=== PATIENT | male | born 1935 | race Caucasian/White ===

== ENCOUNTER 2022-04-01 13:18 | Observation (INO) ==
[2022-04-01] MEDS ORDERED: ASPIRIN CHEW 324 MG PO STA (13:39)
--- NOTE | 2022-04-01 14:21 | XRay Report ---
SINGLE VIEW CHEST CLINICAL HISTORY: Atypical chest pain. FINDINGS: An AP, portable, upright chest radiograph is obtained. No prior studies are available for c omparison at the time of dictation. The heart is enlarged. The pulmonary vasculature is noncongested. Bibasilar opacities are noted. No large pleural effusion or pneumothorax is seen. The skeletal struc tures are osteopenic. The bony thorax is grossly intact. IMPRESSION: 1. Cardiomegaly without radiographic evidence of congestive failure. 2. Bibasilar opacities likely represent atelectasis. Clinical correlation will be required. ACT 112: Negative or not required by law. Electronically signed by: Anup Alicia M.D. 04/01/2022 2:20 PM
[2022-04-01 14:31] LABS: Basophils # (auto) 0.04 K/uL (0-0.2); Basophils % (auto) 0.7 %; Eosinophils # (auto) 0.05 K/uL (0-0.50); Eosinophils % (auto) 0.8 %; Hematocrit (blood only) 30.2 % (40.1-51.0); Hemoglobin 10.1 g/dl (14.0-18.0); Immature Granulocytes # (auto) 0.03 K/uL (0.00-0.02); Immature Granulocytes % (auto) 0.5 %; Lymphocytes # (auto) 0.95 K/uL (1.2-3.4); Mean Corpuscular Hemoglobin 30.1 pg (25.0-34.0); Mean Corpuscular Hgb Conc 33.4 g/dL (32.0-36.0); Mean Corpuscular Volume 89.9 fL (80.0-100.0); Mean Platelet Volume 10.3 fL (9.4-12.4); Monocytes # (auto) 0.47 K/uL (0.24-0.82); Monocytes % (auto) 7.9 %; Neutrophils # (auto) 4.39 K/uL (1.4-6.5); Neutrophils % (auto) 74.1 %; Platelet Count 210 K/uL (130-400); RDW Standard Deviation 45.7 fL (36.4-46.3); Red Blood Count 3.36 M/uL (4.63-6.08); White Blood Count 5.93 K/ul (4.8-10.8)
[2022-04-01 14:35] LABS: Partial Thromboplastin Ratio 0.9; Partial Thromboplastin Time 24.1 Seconds (21.0-31.0); Prothrombin Time 10.9 Seconds (9.0-12.0)
[2022-04-01 14:54] LABS: Calcium 8.6 mg/dl (8.5-10.1); Est GFR (African American) 83.8 ml/min; Est GFR (Non-African American) 72.3 ml/min; Troponin I High Sensitivity 18.8 pg/ml (0-20)
--- NOTE | 2022-04-01 15:22 | Electrocardiogram Report ---
Test Reason : Blood Pressure : / mmHG Vent. Rate : 065 BPM Atrial Rate : 065 BPM P-R Int : 132 ms QRS Dur : 152 ms QT Int : 418 ms P-R-T Axes : 000 -49 -28 degrees QTc Int : 434 ms Poor data quality, interpretation may be adversely affected Sinus rhythm with occasional Premature ventricular complexes Left axis deviation Non-specific intra-ventricular conduction block Possible old posterior NE Abnormal ECG No previous ECGs available Confirmed by Lopez Fox ([id number]) on 04/01/2022 3:22:30 PM Referred By: SELF Confirmed By:Kevon Fox
--- NOTE | 2022-04-01 16:33 | History & Physical Report ---
Date of Service April 01, 2022 Assessment & Plan (1) Atypical chest pain: (2) Anemia: Plan This is an 86-year-old [place] male who has past medical history of myocardial infarction treated medically in [place] approximately 3 years ago and SVT who presents to ED with chest pain x3 days. Atypical Chest Pain hx of IL in past - treated medically in [place] ~ 3 years ago with IV heparin, no cath done Hx of SVT CP off/on x 3 days with exertion, relieved with rest/NTG x 1 initial trop, ecg okay admit to PCU cycle trops, repeat ekg in a.m. Lexiscan stress test in a.m. npo after midnight consult cardiology - pt has yet to establish care with billet inspector in area on ASA, nevbiolol as outpt which is prescribed by daughter. He only takes 1/4 of 5mg of nebivolol ( 1.25mg) a1c, lipid panel in a.m. DVT ppx: SQ Heparin Dispo: PCU, stress test in a.m.; further dispo pending stress test PCP: None, needs to establish FULL CODE Pt was seen and examined in collaboration with Dr. Mace, please see addendum Pt daughter, who is a Physician, name is Shama. Requests updates [phone]. History of Present Illness Chief Complaint: Chest pain x 3 days. Primary Care Provider: TIM PCP This is an 86-year-old [place] male who has past medical history of myocardial infarction treated medically in [place] approximately 3 years ago and SVT who presents to ED with chest pain x3 days. His daughter who is a physician is at bedside. She is the school teacher for the patient as she refuses translation services. Patient lives at home with his and ambulates with a cane. Previously had been in [place]. He is not established with any medical care [place] the [place]. Daughter prescribes him nebivolol and he takes a daily baby aspirin. She states approximately 3 years ago he was hospitalized in [place] and was diagnosed with a heart attack and treated with IV heparin. She states in [place] they do not do cardiac catheterizations. He has not had any heart stents or bypass procedures. She states he otherwise has no medical problems and takes no other medications. He also has not had any surgeries. Over the last 3 days he has been having intermittent chest pain that occurs with exertion. Symptoms are relieved with rest or taking 1 sublingual nitro. When the chest pain comes on he is typically in so exerting himself although he is unable to tell me what activity he is doing. When this comes on he gets sweaty and lightheaded. Chest pain is substernal and nonradiating. It is described as occasionally a pressure and occasionally an ache. He has not had similar pain in the past. He has not tried anything else to help relieve symptoms. Again he has not established with a billet inspector here. He is otherwise been in good state of health and denies any recent illness. Denies fever, chills, sweats, syncope, shortness of breath, palpitations, nausea, vomiting, abdominal pain, change in bowel or urinary habits. His appetite is otherwise been good. Allergies Allergy/AdvReac Type Severity Reaction Status Date / Time No Known Allergies Allergy Unverified 04/01/22 16:20 Home Medications Medication Instructions Recorded Confirmed Type aspirin 81 mg tablet,delayed 81 mg PO DAILY 04/01/22 04/01/22 History release nebivolol 5 mg tablet 1.25 mg PO DAILY 04/01/22 04/01/22 History Past Med/Surg History Medical History (Updated 04/01/22 @ 16:37 by Charlotte Mahoney PA-C) Old myocardial infarction SVT (supraventricular tachycardia) Surgical History (Updated 04/01/22 @ 16:28 by Charlotte Mahoney PA-C) No pertinent past surgical history Family History (Updated 04/01/22 @ 16:28 by Charlotte Mahoney PA-C) Other Family history non-contributory Social History (Updated 04/01/22 @ 16:29 by Charlotte Mahoney PA-C) Smoking Status: Never smoker Hx Alcohol Use: No Hx Substance Use: No Preferred Language: [place] marital status: Current Living Situation: Spouse Current Living Situation Comment: daughter lives close by who is a physician Feels Safe at Home: Yes Review of Systems Review of Systems: All systems reviewed & are unremarkable except as noted in HPI & below Physical Exam Physical Exam: Constitutional: WD/WN, vitals as above, NAD, sitting up in bed, pleasant, conversing easily Head: Normocephalic, Atraumatic Eyes: PERRL, conjunctivae normal, anicteric sclerae ENMT: external ear and nose normal, oropharynx normal Neck: trachea midline, no thyromegaly normal visual inspection Respiratory: normal respiratory effort, lungs clear to auscultation, no wheeze, rales, rhonchi. Normal insp/exp effort, no accessory muscle use Cardiovascular: RRR, 2/6 Cata best heard cardiac apex, b/l chronic venous stasis changes, no edema Vessels: no JVD or carotid bruit Chest: normal inspection of chest Abdomen: normal bowel sounds, soft, nontender, no hepatosplenomegaly Musculoskeletal: no cyanosis or clubbing, AROM x 4 Skin: no rashes, warm and dry normal turgor Neurologic: PERRL, EOMI, accommodation nl, no face palsy, no dysarthria CN's II-XI intact bilaterally and moves all extremities Psychiatric: A+Ox3, euthymic affect : deferred Results & Data Results & Data ([facility]) Vital Signs (Past 12 Hours) Vital Signs Temp Pulse Pulse Resp BP BP Pulse Ox 04/01/22 15:19 65 18 125/75 100 04/01/22 13:39 16 98 04/01/22 13:19 18 04/01/22 13:19 04/01/22 13:19 36.6 C 63 16 128/74 98 O2 Del Method 04/01/22 15:19 Room Air 04/01/22 13:39 Room Air 04/01/22 13:19 04/01/22 13:19 Room Air 04/01/22 13:19 Diagnostic Findings Chest X-Ray 04/01/22 13:39 SINGLE VIEW CHEST CLINICAL HISTORY: Atypical chest pain. FINDINGS: An AP, portable, upright chest radiograph is obtained. No prior studies are available for comparison at the time of dictation. The heart is enlarged. The pulmonary vasculature is noncongested. Bibasilar opacities are noted. No large pleural effusion or pneumothorax is seen. The skeletal structures are osteopenic. The bony thorax is grossly intact. IMPRESSION: 1. Cardiomegaly without radiographic evidence of congestive failure. 2. Bibasilar opacities likely represent atelectasis. Clinical correlation will be required. ACT 112: Negative or not required by law. Electronically signed by: Anup Alicia M.D. 04/01/2022 2:20 PM Medications Administered Medication List Discontinued Medications Aspirin (Aspirin Chew 324 Mg) 324 mg PO NOW STA Stop: 04/01/22 13:40 Last Admin: 04/01/22 14:08 Dose: 324 mg Documented By: LYDIA ECG Rate (beats per minute): 65 Rhythm: normal sinus Findings: + PVC COVID-19 Results Results COVID-19 Adm Lab Results: RBC 3.36 M/uL (4.63-6.08) L 04/01/22 WBC 5.93 K/ul (4.8-10.8) 04/01/22 Hgb 10.1 g/dl (14.0-18.0) L 04/01/22 Hct 30.2 % (40.1-51.0) L 04/01/22 Plt Count 210 K/uL (130-400) 04/01/22 Neutrophils (%) (Auto) 74.1 % 04/01/22 Lymphocytes (%) (Auto) 16.0 % 04/01/22 Monocytes # (Auto) 0.47 K/uL (0.24-0.82) 04/01/22 Eosinophils # (Auto) 0.05 K/uL (0-0.50) 04/01/22 Immature Granulocyte % (Auto) 0.5 % 04/01/22 Neutrophils # (Auto) 4.39 K/uL (1.4-6.5) 04/01/22 Lymphocytes # (Auto) 0.95 K/uL (1.2-3.4) L 04/01/22 Monocytes # (Auto) 0.47 K/uL (0.24-0.82) 04/01/22 Eosinophils # (Auto) 0.05 K/uL (0-0.50) 04/01/22 Basophils # (Auto) 0.04 K/uL (0-0.2) 04/01/22 Immature Granulocyte # (Auto) 0.03 K/uL (0.00-0.02) H 04/01 Na 136 mmol/L (136-145) 04/01/22 K 4.0 mmol/L (3.5-5.1) 04/01/22 Cl 106 mmol/L (98-107) 04/01/22 CO2 25 mmol/L (21-32) 04/01/22 Anion Gap 5 (3-11) 04/01/22 BUN 25 mg/dl (6-23) H 04/01/22 Creatinine 0.96 mg/dl (0.6-1.4) 04/01/22 BUN/Creatinine Ratio 26.0 (10-20) H 04/01/22 Glucose Level 105 mg/dl (70-99(Fasting)) H 04/01/22 Ca 8.6 mg/dl (8.5-10.1) 04/01/22 PTT 24.1 Seconds (21.0-31.0) 04/01/22 INR 1.0 (0.9-1.1) 04/01/22 SARS-CoV-2, RNA, NAAT NEGATIVE (NEGATIVE) 04/01/22 Chest X-Ray 04/01/22 Code Status & VTE Plan Code Status FULL CODE VTE Prophylaxis Plan VTE Prophylaxis will be ordered: Yes Supervising Physician Co-Signing Physician Notes Patient was seen and examined with Charlotte HERNANDEZ at bedside. Daughter Shama (physician) present at bedside. Chart reviewed. Case discussed with and agree with the documentation above. In summary, this is a 86 year old [place] speaking male with h/o IL (in [place] 3 yrs back treated medically, no cath done), SVT who doesn't see a physician presented to the ED with chest pain for 3 days, exertional, relieved with rest and NG. Last took nitro last night. In ED, vitals stable, chest pain free. Lying comfortably in bed, chest clear, heart sounds normal, abd benign, no edema. Trop x1 negative. EKG reviewed. Will place in obs for chest pain rule out with serial trop, tele, repeat EKG in am and stress test if trop, tele, EKG unremarkable. continue home aspirin and betablocker. No indication for heparin drip now. Consult cardio. Rest as per the note above.
--- NOTE | 2022-04-01 18:44 | Emergency Department Note ---
History of Present Illness General Chief Complaint: Chest Pain Stated Complaint: CHEST PAIN,HEADACHE,SOB,DIZZINESS,WEAKNESS Time Seen by Provider: 04/01/22 13:39 Source: patient and family (Daughter who is a physician is translating) History of Present Illness Provider Complaint: chest pain Onset (ago): day(s) 3 Duration: intermittent Onset: during exertion Pain Location: substernal Pain Radiation: none Severity: moderate Maximum Pain Intensity: 7 Current Pain Intensity: 0 Quality: + aching and + heaviness Relieved By: + nitroglycerin Exacerbated By: + nothing Context: no recent illness, no recent surgery, no recent immobilization, no recent travel, no trauma/injury, no new medications or no history of DVT/PE Associated symptoms: no nausea, no vomiting, no diaphoresis, no dyspnea, no syncope, no palpitations, no fever or no cough Treatments prior to arrival: nitroglycerin Home Medications Medication Instructions Recorded Confirmed Type aspirin 81 mg tablet,delayed 81 mg PO DAILY 04/01/22 04/01/22 History release nebivolol 5 mg tablet 1.25 mg PO DAILY 04/01/22 04/01/22 History Allergies Allergy/AdvReac Type Severity Reaction Status Date / Time No Known Allergies Allergy Unverified 04/01/22 16:20 Past Med/Surg History Medical History Old myocardial infarction SVT (supraventricular tachycardia) Surgical History No pertinent past surgical history Family History Other Family history non-contributory Social History Smoking Status: Never smoker Hx Alcohol Use: No Hx Substance Use: No Preferred Language: Gibralt[place] marital status: Current Living Situation: Spouse Current Living Situation Comment: daughter lives close by who is a physician Feels Safe at Home: Yes Review of Systems A total of 10 systems reviewed and were otherwise negative Physical Exam Vital Signs Vital Signs - 24 hr 04/01/22 13:19 04/01/22 13:19 04/01/22 13:19 Temperature 36.6 C Temperature Source Temporal Artery Scan Pulse Rate 63 Pulse Rate [Apical] Pulse Rate from SpO2 Sensor Pulse Rhythm [Apical] Pulse Strength [Apical] Respiratory Rate 16 18 Respiratory Effort / Characteristics Non-Labored Respiratory Depth Normal Respiratory Pattern Regular Blood Pressure 128/74 Blood Pressure [Left Arm] Blood Pressure Mean 92 Blood Pressure Mean [Left Arm] Blood Pressure Position [Left Arm] Pulse Oximetry 98 Oxygen Delivery Method Room Air Sepsis Recent Fever Within 48 Hours No Sepsis New/Unexplained Change in Mental Status No Sepsis Action Taken by Nursing No Action Required 04/01/22 13:39 04/01/22 15:19 04/01/22 15:30 Temperature Temperature Source Pulse Rate 60 Pulse Rate [Apical] 65 Pulse Rate from SpO2 Sensor 60 Pulse Rhythm [Apical] Regular Pulse Strength [Apical] Normal Respiratory Rate 16 18 14 Respiratory Effort / Characteristics Non-Labored Respiratory Depth Normal Respiratory Pattern Regular Blood Pressure 135/85 Blood Pressure [Left Arm] 125/75 Blood Pressure Mean 101 Blood Pressure Mean [Left Arm] 91 Blood Pressure Position [Left Arm] Lying Pulse Oximetry 98 100 98 Oxygen Delivery Method Room Air Room Air Room Air Sepsis Recent Fever Within 48 Hours Sepsis New/Unexplained Change in Mental Status Sepsis Action Taken by Nursing 04/01/22 15:50 04/01/22 16:34 04/01/22 17:00 Temperature Temperature Source Pulse Rate 63 70 Pulse Rate [Apical] 74 Pulse Rate from SpO2 Sensor 63 Pulse Rhythm [Apical] Regular Pulse Strength [Apical] Normal Respiratory Rate 14 16 18 Respiratory Effort / Characteristics Non-Labored Respiratory Depth Normal Respiratory Pattern Regular Blood Pressure 151/93 H 164/80 H Blood Pressure [Left Arm] 119/69 Blood Pressure Mean 112 108 Blood Pressure Mean [Left Arm] 85 Blood Pressure Position [Left Arm] Lying Pulse Oximetry 100 100 99 Oxygen Delivery Method Room Air Room Air Room Air Sepsis Recent Fever Within 48 Hours Sepsis New/Unexplained Change in Mental Status Sepsis Action Taken by Nursing Physical Exam GENERAL: He is oriented to person, place, and time. He appears well-developed and well-nourished. He does not appear distressed. HENT: Exam performed. - Head: Normocephalic and atraumatic. - Right Ear: External ear normal. No mastoid tenderness. - Left Ear: External ear normal. No mastoid tenderness. - Mouth/Throat: The oropharynx is clear and moist. No trismus in the jaw. No dental abscesses or uvula swelling. No oropharyngeal exudate or tonsillar abscesses. EYES: Conjunctivae and EOM are normal. Pupils are equal, round, and reactive to light. Right eye exhibits no discharge. Left eye exhibits no discharge. No scleral icterus. NECK: Normal range of motion. Neck supple. No JVD present. No spinous process tenderness present. No carotid bruit present. No rigidity. No tracheal deviation and normal range of motion present. No Brudzinski's sign and no Kernig's sign noted. CV: Normal rate, regular rhythm, normal heart sounds and intact distal pulses. There is no peripheral edema. Palpable radial pulses bue. PULM/CHEST: Effort normal and breath sounds normal. No respiratory distress. No stridor. He has no wheezes. He has no rales. - Chest Wall: He exhibits no tenderness. ABD: The abdomen is soft. Bowel sounds are normal. He has no distension. No mass is present. There is no tenderness. There is no rebound, no guarding, no Luna's sign and no tenderness at McBurney's point. Rovsig negative. MUSC/SKEL: Normal range of motion. There is no peripheral edema, tenderness or deformity. LYMPH: No cervical adenopathy. NEURO: He is alert and oriented to person, place, and time. He has normal strength. No cranial nerve deficit or sensory deficit. Coordination and gait normal. GCS eye subscore is 4. GCS verbal subscore is 5. GCS motor subscore is 6. Cerebellar tests wnl. SKIN: Skin is warm and dry. He is not diaphoretic. PSYCH: He has a normal mood and affect. Behavior is normal. Judgment and thought content normal. Course Course 1339: The patient was evaluated in room C5. A complete history and physical exam was performed Cardiac monitoring: An order was placed for continuous cardiac monitoring. The monitor shows a rate of 70 with sinus rhythm 1525: Vital signs stable. Labs and imaging are within normal limits. Daughter reports that the patient has never seen a oxygen equipment aide before but in [place] was told he had a heart attack and was being managed medically. Patient not seen a oxygen equipment aide in this country. Given the patient's recurrence of chest pain and repeated need for nitroglycerin the patient would be admitted to the [facility] team for rule out ACS. Administered Medications Discontinued Medications Aspirin (Aspirin Chew 324 Mg) 324 mg PO NOW STA Stop: 04/01/22 13:40 Last Admin: 04/01/22 14:08 Dose: 324 mg Documented By: LYDIA Medical Decision Making Laboratory Data Result diagrams: 04/01/22 14:10 04/01/22 14:10 Labs: Lab Results 04/01/22 04/01/22 04/01/22 Range/Units 14:10 14:10 14:10 WBC 5.93 (4.8-10.8) K/ul RBC 3.36 L (4.63-6.08) M/uL Hgb 10.1 L (14.0-18.0) g/dl Hct 30.2 L (40.1-51.0) % MCV 89.9 (80.0-100.0) fL MCH 30.1 (25.0-34.0) pg MCHC 33.4 (32.0-36.0) g/dL RDW Std Deviation 45.7 (36.4-46.3) fL RDW Coeff of Rg 14.0 (11.5-14.5) % Plt Count 210 (130-400) K/uL MPV 10.3 (9.4-12.4) fL Immature Gran % (Auto) 0.5 % Neut % (Auto) 74.1 % Lymph % (Auto) 16.0 % Wake % (Auto) 7.9 % Eos % (Auto) 0.8 % Baso % (Auto) 0.7 % Neut # (Auto) 4.39 (1.4-6.5) K/uL Lymph # (Auto) 0.95 L (1.2-3.4) K/uL Wake # (Auto) 0.47 (0.24-0.82) K/uL Eos # (Auto) 0.05 (0-0.50) K/uL Baso # (Auto) 0.04 (0-0.2) K/uL Immature Gran # (Auto) 0.03 H (0.00-0.02) K/uL PT 10.9 (9.0-12.0) Seconds INR 1.0 (0.9-1.1) APTT 24.1 (21.0-31.0) Seconds PTT Ratio 0.9 Sodium 136 (136-145) mmol/L Potassium 4.0 (3.5-5.1) mmol/L Chloride 106 (98-107) mmol/L Carbon Dioxide 25 (21-32) mmol/L Anion Gap 5 (3-11) BUN 25 H (6-23) mg/dl Creatinine 0.96 (0.6-1.4) mg/dl Est Cr Clr Drug Dosing 61.0 ml/min Est GFR ( Amer) 83.8 ml/min Est GFR (Non-Af Amer) 72.3 ml/min BUN/Creatinine Ratio 26.0 H (10-20) Glucose 105 H (70-99(Fasting)) mg/dl Calcium 8.6 (8.5-10.1) mg/dl Troponin I High Sens 18.8 (0-20) pg/ml Lipase 17 (11-82) U/L SARS-CoV-2, RNA, NAAT (NEGATIVE) 04/01/22 04/01/22 Range/Units 15:34 17:06 WBC (4.8-10.8) K/ul RBC (4.63-6.08) M/uL Hgb (14.0-18.0) g/dl Hct (40.1-51.0) % MCV (80.0-100.0) fL MCH (25.0-34.0) pg MCHC (32.0-36.0) g/dL RDW Std Deviation (36.4-46.3) fL RDW Coeff of Rg (11.5-14.5) % Plt Count (130-400) K/uL MPV (9.4-12.4) fL Immature Gran % (Auto) % Neut % (Auto) % Lymph % (Auto) % Wake % (Auto) % Eos % (Auto) % Baso % (Auto) % Neut # (Auto) (1.4-6.5) K/uL Lymph # (Auto) (1.2-3.4) K/uL Wake # (Auto) (0.24-0.82) K/uL Eos # (Auto) (0-0.50) K/uL Baso # (Auto) (0-0.2) K/uL Immature Gran # (Auto) (0.00-0.02) K/uL PT (9.0-12.0) Seconds INR (0.9-1.1) APTT (21.0-31.0) Seconds PTT Ratio Sodium (136-145) mmol/L Potassium (3.5-5.1) mmol/L Chloride (98-107) mmol/L Carbon Dioxide (21-32) mmol/L Anion Gap (3-11) BUN (6-23) mg/dl Creatinine (0.6-1.4) mg/dl Est Cr Clr Drug Dosing ml/min Est GFR ( Amer) ml/min Est GFR (Non-Af Amer) ml/min BUN/Creatinine Ratio (10-20) Glucose (70-99(Fasting)) mg/dl Calcium (8.5-10.1) mg/dl Troponin I High Sens 20.0 (0-20) pg/ml Lipase (11-82) U/L SARS-CoV-2, RNA, NAAT NEGATIVE (NEGATIVE) Imaging Data Chest x-ray: Radiologist's impression: Chest X-Ray 04/01/22 13:39 SINGLE VIEW CHEST CLINICAL HISTORY: Atypical chest pain. FINDINGS: An AP, portable, upright chest radiograph is obtained. No prior studies are available for comparison at the time of dictation. The heart is enlarged. The pulmonary vasculature is noncongested. Bibasilar opacities are noted. No large pleural effusion or pneumothorax is seen. The skeletal structures are osteopenic. The bony thorax is grossly intact. IMPRESSION: 1. Cardiomegaly without radiographic evidence of congestive failure. 2. Bibasilar opacities likely represent atelectasis. Clinical correlation will be required. ACT 112: Negative or not required by law. Electronically signed by: Anup Alicia M.D. 04/01/2022 2:20 PM ECG Data Indication: chest pain Rate (beats per minute): 65 Rhythm: normal sinus Findings: + PVC and + RBBB; no ST depression, no ST elevation or no prolonged QT MDM Narrative Vital signs stable. Labs and imaging are within normal limits. Daughter reports that the patient has never seen a oxygen equipment aide before but in [place] was told he had a heart attack and was being managed medically. Patient not seen a oxygen equipment aide in this country. Given the patient's recurrence of chest pain and repeated need for nitroglycerin the patient would be admitted to the [facility] team for rule out ACS. Impression & Plan Chest pain Discharge Plan Visit Data Chief Complaint: Chest Pain Stated Complaint: CHEST PAIN,HEADACHE,SOB,DIZZINESS,WEAKNESS ED Provider: Krishan Mcintyre Discharge Problem: Chest pain Patient Disposition: Being Evaluated by Hospitalist Forms Stand Alone Forms: [facility] Prescriptions Prescriptions: No Action aspirin [Aspir-81] 81 mg Tablet,Delayed Release (Dr/Ec) 81 mg PO DAILY nebivolol 5 mg Tablet 1.25 mg PO DAILY Referrals Referrals: PCP,NO [Primary Care Provider] -
[2022-04-01] MEDS ORDERED: ACETAMINOPHEN 325 MG TAB PO PRN (21:34)
[2022-04-01] MEDS ORDERED: ONDANSETRON INJ 2 MG/ML 2 ML VIAL IV PRN (21:34)
[2022-04-01] MEDS ORDERED: POLYETHYLENE (MIRALAX) 17 GM PACK PO PRN (21:34)
[2022-04-01] MEDS ORDERED: MAGNESIUM HYDROXIDE SUSP 30 ML UDC PO PRN (21:34)
[2022-04-01] MEDS ORDERED: ALUMINUM/MAGNESIUM SUSP 30 ML UDC PO PRN (21:34)
[2022-04-01] MEDS ORDERED: NITROGLYCERIN SL 0.4 MG/TAB TAB SL PRN (21:34)
[2022-04-01] MEDS: HEPARIN SOD 5,000 UNIT/0.5 ML VIAL SQ SCH (22:21)
[2022-04-02] MEDS: HEPARIN SOD 5,000 UNIT/0.5 ML VIAL SQ SCH ×2 (05:40→17:21)
[2022-04-02 06:10] LABS: Basophils # (auto) 0.03 K/uL (0-0.2); Basophils % (auto) 0.6 %; Eosinophils # (auto) 0.09 K/uL (0-0.50); Eosinophils % (auto) 1.8 %; Hematocrit (blood only) 31.4 % (40.1-51.0); Hemoglobin 10.4 g/dl (14.0-18.0); Immature Granulocytes # (auto) 0.02 K/uL (0.00-0.02); Immature Granulocytes % (auto) 0.4 %; Lymphocytes # (auto) 0.97 K/uL (1.2-3.4); Lymphocytes % (auto) 19.1 %; Mean Corpuscular Hemoglobin 30.1 pg (25.0-34.0); Mean Corpuscular Hgb Conc 33.1 g/dL (32.0-36.0); Mean Corpuscular Volume 90.8 fL (80.0-100.0); Mean Platelet Volume 10.1 fL (9.4-12.4); Monocytes # (auto) 0.43 K/uL (0.24-0.82); Monocytes % (auto) 8.5 %; Neutrophils # (auto) 3.54 K/uL (1.4-6.5); Neutrophils % (auto) 69.6 %; Platelet Count 184 K/uL (130-400); RDW Standard Deviation 46.1 fL (36.4-46.3); Red Blood Count 3.46 M/uL (4.63-6.08); White Blood Count 5.08 K/ul (4.8-10.8)
[2022-04-02 06:47] LABS: Troponin I High Sensitivity 16.3 pg/ml (0-20)
[2022-04-02 07:01] LABS: Ferritin 75.9 ng/ml (8-388)
[2022-04-02 07:05] LABS: Albumin Globulin Ratio 1.3 (0.9-2); Albumin Level 3.1 gm/dl (3.4-5.0); BUN Creatinine Ratio 22.3 (10-20); Bilirubin,Total 0.3 mg/dl (0.2-1.0); Calcium 8.1 mg/dl (8.5-10.1); Chol HDL Ratio 3.7 (0-5); Creatinine Clr Calc Pharmacy 62.3 ml/min; Est GFR (African American) 85.9 ml/min; Est GFR (Non-African American) 74.2 ml/min; Globulin 2.3 gm/dl (2.5-4.0); Magnesium 2.2 mg/dl (1.7-2.4); Potassium 4.1 mmol/L (3.5-5.1); Total Protein 5.4 gm/dl (6.0-8.3)
[2022-04-02 07:07] LABS: Estimated Average Glucose 111 mg/dl; Folate (Folic Acid) 14.15 ng/ml (>5.38); Hemoglobin A1C 5.5 % (4.5-5.6)
[2022-04-02] MEDS ORDERED: FERROUS SULFATE 325 MG/7.4 ML UDP PO SCH (09:00)
[2022-04-02] MEDS ORDERED: METOPROLOL TARTRATE 25 MG TAB PO SCH (09:00)
[2022-04-02] MEDS ORDERED: ATORVASTATIN 40 MG TAB PO SCH (09:00)
[2022-04-02] MEDS ORDERED: DOCUSATE SODIUM 100 MG CAP PO SCH (09:00)
[2022-04-02] MEDS ORDERED: ASPIRIN 81 MG ECTAB PO SCH (09:00)
--- NOTE | 2022-04-02 11:05 | Cardiology Consultation ---
Date of Consultation April 02, 2022 Assessment & Plan (1) Chest pain: (2) Old myocardial infarction: Plan Patient admitted after several days of CP. Now resolved. EKG demonstrates possible inferior T wave inversions, but no comparison available. HS troponin negative x4. Proceed with resting echo and nuclear Lexiscan stress test today for further evaluation. He apparently does have history of possible CAD, with old FL in [place] several years ago, managed medically. Recommend ASA 81 mg daily, statin, and low dose beta annie on discharge. Case discussed with Dr. Hernandez. Will follow. Further recommendations pending review of imaging studies. Supervising Physician Co-Signing Physician Notes 86-year-old patient present to the emergency department due to chest discomfort. Discomfort waxing and waning over several days at times associated with exertion. Discomfort has resolved since admission. ECG demonstrating T wave inversions without comparison. High-sensitivity troponins negative. Spoke with patient's daughter via telephone. She offers no additional concerns/complaints. Patient speaks limited Citizen Of [place]. PE: VSS. GEN: NAD, AAO x3. Heart: Regular rhythm, normal S1-S2. 2/6 midsystolic murmur heard best at left ventricular apex without radiation. Lungs: Clear bilateral, no rales, rhonchi, wheeze. Extremities: No edema. A/P: Agree with above PA-C history, physical exam, assessment and plan. 86-year-old patient admitted with chest discomfort. No evidence of acute coronary syndrome. Echocardiogram reveals mild to moderate mitral regurgitation without regional wall motion abnormality. We will proceed with Lexiscan nuclear stress testing for further risk stratification. Further recommendations pending results. History of Present Illness Reason for Consultation: Chest pain Requesting Physician: Dr. Domínguez Attending Physician: Dr. Hernandez History of Present Illness Patient is a 86 year old Cam[place] male who was brought to ER for 3 days of chest pain. History is obtained from admission records. Daughter, who is a physician provided translation in the ER, declining translation services. Patient has declined translation today. He is able to communicate with minimal Citizen [place] at time of consult. He apparently had an FL several years ago while in [place], but was treated medically. He takes nebivolol at home and ASA. He denies recurrent chest pain. No SOB. He is laying in bed comfortably. No palpitations. No orthopnea, PND or edema. Since admission HS troponin remains unremarkable. EKG demonstrates NSR with T wave inversion in inferior lead. No prior available for comparison with inpatient/outpatient records. He is scheduled for echo and nuclear lexiscan today. Allergies Allergy/AdvReac Type Severity Reaction Status Date / Time No Known Allergies Allergy Unverified 04/01/22 16:20 Home Medications Medication Instructions Recorded Confirmed Type aspirin 81 mg tablet,delayed 81 mg PO DAILY 04/01/22 04/01/22 History release nebivolol 5 mg tablet 1.25 mg PO DAILY 04/01/22 04/01/22 History Patient History Medical History Old myocardial infarction SVT (supraventricular tachycardia) Surgical History No pertinent past surgical history Family History Other Family history non-contributory Social History Smoking Status: Former smoker Second Hand Exposure: No; Do You Dip or Chew Tobacco: No; Tobacco Cessation Education Requested by Patient: No Hx Alcohol Use: Yes Alcohol type: wine Hx Substance Use: No Preferred Language: Cameroonian Communication Ability: Effective Communication Tools: IPad and Language Line Manufacturing Systems Engineer Manufacturing Systems Engineer Required: Yes, Video and Voice Beliefs That Will Affect Care: None marital status: Current Living Situation: Spouse Current Living Situation Comment: daughter lives close by who is a physician Other Information That Helps Us Care for You: No Feels Safe at Home: Yes Safety Concerns: Feels Safe At This Time Assistive Devices: Cane Review of Systems Review of Systems: All systems reviewed & are unremarkable except as noted in HPI & below Physical Exam Constitutional: WD/WN, vitals as above Respiratory: normal respiratory effort, lungs clear to auscultation Cardiovascular: Rate/Rhythm: regular rate and regular rhythm Heart Sounds: + murmur (II/ systolic murmur LSB) Gastrointestinal (Abdomen): normal bowel sounds, soft, nontender, no hepatosplenomegaly Skin: no rashes, warm and dry Neurologic: PERRL, EOMI, accommodation nl, no face palsy, no dysarthria Psychiatric: A+Ox3, euthymic affect Results & Data ([facility]) Vital Signs (Past 12 Hours) Vital Signs Temp Pulse Pulse Resp BP Pulse Ox O2 Del Method 04/02/22 10:57 36.5 C 57 L 17 138/70 100 Room Air 04/02/22 07:01 36.8 C 63 16 124/79 100 Room Air 04/01/22 23:00 85 04/01/22 23:15 36.6 C 57 L 16 113/72 100 Room Air Laboratory Results Cardiac Enzymes 04/01/22 04/01/22 04/01/22 Range/Units 14:10 17:06 22:46 AST (13-39) U/L Troponin I High Sens 18.8 20.0 19.9 (0-20) pg/ml 04/02/22 Range/Units 05:31 AST 14 (13-39) U/L Troponin I High Sens 16.3 (0-20) pg/ml Coagulation 04/01/22 Range/Units 14:10 PT 10.9 (9.0-12.0) Seconds APTT 24.1 (21.0-31.0) Seconds Lipids 04/02/22 Range/Units 05:31 Triglycerides 86 (0-150) mg/dl Cholesterol 158 (0-200) mg/dl HDL Cholesterol 43 mg/dl Cholesterol/HDL Ratio 3.7 (0-5) CBC 04/01/22 04/02/22 Range/Units 14:10 05:31 WBC 5.93 5.08 (4.8-10.8) K/ul RBC 3.36 L 3.46 L (4.63-6.08) M/uL Hgb 10.1 L 10.4 L (14.0-18.0) g/dl Hct 30.2 L 31.4 L (40.1-51.0) % Plt Count 210 184 (130-400) K/uL Neut # (Auto) 4.39 3.54 (1.4-6.5) K/uL Lymph # (Auto) 0.95 L 0.97 L (1.2-3.4) K/uL [place] # (Auto) 0.47 0.43 (0.24-0.82) K/uL Eos # (Auto) 0.05 0.09 (0-0.50) K/uL Baso # (Auto) 0.04 0.03 (0-0.2) K/uL Comprehensive Metabolic Panel 04/01/22 04/02/22 Range/Units 14:10 05:31 Sodium 136 140 (136-145) mmol/L Potassium 4.0 4.1 (3.5-5.1) mmol/L Chloride 106 109 H (98-107) mmol/L Carbon Dioxide 25 28 (21-32) mmol/L BUN 25 H 21 (6-23) mg/dl Creatinine 0.96 0.94 (0.6-1.4) mg/dl Glucose 105 H 92 (70-99(Fasting)) mg/dl Calcium 8.6 8.1 L (8.5-10.1) mg/dl AST 14 (13-39) U/L ALT 11 (7-52) U/L Alkaline Phosphatase 42 (34-104) U/L Total Protein 5.4 L (6.0-8.3) gm/dl Albumin 3.1 L (3.4-5.0) gm/dl Intake and Output 04/01/22 04/02/22 04/02/22 22:59 06:59 14:59 Intake Total 240 / 240 Output Total 350 / 350 Balance -110 / -110 Intake: Oral 240 / 240 Output: Urine 350 / 350 Other: Other Intake Source npo Weight 79.9 kg 79.9 kg Weight Measurement Method Standing Scale Patient Weight 04/03/22 06:59 Weight 79.9 kg Laboratory Results WBC 5.08 K/ul (4.8-10.8) 04/02/22 05:31 RBC 3.46 M/uL (4.63-6.08) L 04/02/22 05:31 Hgb 10.4 g/dl (14.0-18.0) L 04/02/22 05:31 Hct 31.4 % (40.1-51.0) L 04/02/22 05:31 MCV 90.8 fL (80.0-100.0) 04/02/22 05:31 MCH 30.1 pg (25.0-34.0) 04/02/22 05:31 MCHC 33.1 g/dL (32.0-36.0) 04/02/22 05:31 RDW Std Deviation 46.1 fL (36.4-46.3) 04/02/22 05:31 RDW Coeff of Rg 14.0 % (11.5-14.5) 04/02/22 05:31 Plt Count 184 K/uL (130-400) 04/02/22 05:31 MPV 10.1 fL (9.4-12.4) 04/02/22 05:31 Immature Gran % (Auto) 0.4 % 04/02/22 05:31 Neut % (Auto) 69.6 % 04/02/22 05:31 Lymph % (Auto) 19.1 % 04/02/22 05:31 [place] % (Auto) 8.5 % 04/02/22 05:31 Eos % (Auto) 1.8 % 04/02/22 05:31 Baso % (Auto) 0.6 % 04/02/22 05:31 Neut # (Auto) 3.54 K/uL (1.4-6.5) 04/02/22 05:31 Lymph # (Auto) 0.97 K/uL (1.2-3.4) L 04/02/22 05:31 [place] # (Auto) 0.43 K/uL (0.24-0.82) 04/02/22 05:31 Eos # (Auto) 0.09 K/uL (0-0.50) 04/02/22 05:31 Baso # (Auto) 0.03 K/uL (0-0.2) 04/02/22 05:31 Immature Gran # (Auto) 0.02 K/uL (0.00-0.02) 04/02/22 05:31 PT 10.9 Seconds (9.0-12.0) 04/01/22 14:10 INR 1.0 (0.9-1.1) 04/01/22 14:10 APTT 24.1 Seconds (21.0-31.0) 04/01/22 14:10 PTT Ratio 0.9 04/01/22 14:10 Sodium 140 mmol/L (136-145) 04/02/22 05:31 Potassium 4.1 mmol/L (3.5-5.1) 04/02/22 05:31 Chloride 109 mmol/L (98-107) H 04/02/22 05:31 Carbon Dioxide 28 mmol/L (21-32) 04/02/22 05:31 Anion Gap 3 (3-11) 04/02/22 05:31 BUN 21 mg/dl (6-23) 04/02/22 05:31 Creatinine 0.94 mg/dl (0.6-1.4) 04/02/22 05:31 Est Cr Clr Drug Dosing 62.3 ml/min 04/02/22 05:31 Est GFR ( Amer) 85.9 ml/min 04/02/22 05:31 Est GFR (Non-Af Amer) 74.2 ml/min 04/02/22 05:31 BUN/Creatinine Ratio 22.3 (10-20) H 04/02/22 05:31 Glucose 92 mg/dl (70-99(Fasting)) 04/02/22 05:31 Estimat Average Glucose 111 mg/dl 04/02/22 05:31 Hemoglobin A1c 5.5 % (4.5-5.6) 04/02/22 05:31 Calcium 8.1 mg/dl (8.5-10.1) L 04/02/22 05:31 Magnesium 2.2 mg/dl (1.7-2.4) 04/02/22 05:31 Iron 31 mcg/dl (35-175) L 04/02/22 05:31 Transferrin 188 mg/dl (200-360) L 04/02/22 05:31 Ferritin 75.9 ng/ml (8-388) 04/02/22 05:31 Total Bilirubin 0.3 mg/dl (0.2-1.0) 04/02/22 05:31 AST 14 U/L (13-39) 04/02/22 05:31 ALT 11 U/L (7-52) 04/02/22 05:31 Alkaline Phosphatase 42 U/L (34-104) 04/02/22 05:31 Troponin I High Sens 16.3 pg/ml (0-20) 04/02/22 05:31 Total Protein 5.4 gm/dl (6.0-8.3) L 04/02/22 05:31 Albumin 3.1 gm/dl (3.4-5.0) L 04/02/22 05:31 Globulin 2.3 gm/dl (2.5-4.0) L 04/02/22 05:31 Albumin/Globulin Ratio 1.3 (0.9-2) 04/02/22 05:31 Triglycerides 86 mg/dl (0-150) 04/02/22 05:31 Cholesterol 158 mg/dl (0-200) 04/02/22 05:31 LDL Cholesterol, Calc 98 mg/dl 04/02/22 05:31 VLDL Cholesterol, Calc 17 mg/dl (0-30) 04/02/22 05:31 HDL Cholesterol 43 mg/dl 04/02/22 05:31 Cholesterol/HDL Ratio 3.7 (0-5) 04/02/22 05:31 Lipase 17 U/L (11-82) 04/01/22 14:10 Vitamin B12 443 pg/ml (180-914) 04/02/22 05:31 Folate 14.15 ng/ml (>5.38) 04/02/22 05:31 SARS-CoV-2, RNA, NAAT NEGATIVE (NEGATIVE) 04/01/22 15:34 Impressions Chest X-Ray 04/01/22 13:39 SINGLE VIEW CHEST CLINICAL HISTORY: Atypical chest pain. FINDINGS: An AP, portable, upright chest radiograph is obtained. No prior studies are available for comparison at the time of dictation. The heart is enlarged. The pulmonary vasculature is noncongested. Bibasilar opacities are noted. No large pleural effusion or pneumothorax is seen. The skeletal structures are osteopenic. The bony thorax is grossly intact. IMPRESSION: 1. Cardiomegaly without radiographic evidence of congestive failure. 2. Bibasilar opacities likely represent atelectasis. Clinical correlation will be required. ACT 112: Negative or not required by law. Electronically signed by: Anup Alicia M.D. 04/01/2022 2:20 PM Diagnostic Findings Telemetry reviewed: NSR at 50-60 bpm EKGs reviewed: Sinus rhythm with occasional Premature ventricular complexes Left axis deviation Non-specific intra-ventricular conduction block Possible old posterior FL T wave inversion in inferior leads. No prior EKG's for comparison Medications Administered Current Inpatient Medications Acetaminophen (Acetaminophen 325 Mg Tab) 650 mg PO Q4H PRN PRN Reason: Pain or Fever Stop: 05/01/22 21:33 Al Hydrox/Mg Hydrox/Simethicone (Aluminum/Magnesium Susp 30 Ml Udc) 15 ml PO Q4H PRN PRN Reason: Dyspepsia Stop: 05/01/22 21:33 Aspirin (Aspirin 81 Mg Ectab) 81 mg PO DAILY [facility] Stop: 05/02/22 08:59 Last Admin: 04/02/22 08:54 Dose: 81 mg Atorvastatin Calcium (Atorvastatin 40 Mg Tab) 40 mg PO QAM [facility] Stop: 05/02/22 08:59 Last Admin: 04/02/22 10:16 Dose: 40 mg Docusate Sodium (Docusate Sodium 100 Mg Cap) 100 mg PO BID [facility] Stop: 05/02/22 08:59 Last Admin: 04/02/22 10:16 Dose: 100 mg Ferrous Sulfate (Ferrous Sulfate 325 Mg/7.4 Ml Udp) 325 mg PO QAM [facility] Stop: 05/02/22 08:59 Last Admin: 04/02/22 08:57 Dose: 325 mg Heparin Sodium (Porcine) (Heparin Sod 5,000 Unit/0.5 Ml Vial) 5,000 units SQ Q8 [facility] Stop: 05/01/22 21:59 Last Admin: 04/02/22 05:40 Dose: 5,000 units Magnesium Hydroxide (Magnesium Hydroxide Susp 30 Ml Udc) 30 ml PO Q12H PRN PRN Reason: Constipation Stop: 05/01/22 21:33 Metoprolol Tartrate (Metoprolol Tartrate 25 Mg Tab) 6.25 mg PO BID [facility]; Protocol Stop: 05/02/22 08:59 Nitroglycerin (Nitroglycerin Sl 0.4 Mg/Tab Tab) 0.4 mg SL UD PRN PRN Reason: Chest Pain Stop: 05/01/22 21:33 Ondansetron HCl (Ondansetron Inj 2 Mg/Ml 2 Ml Vial) 4 mg IV Q6H PRN PRN Reason: Nausea Stop: 05/01/22 21:33 Polyethylene Glycol (Polyethylene (Miralax) 17 Gm Pack) 17 gm PO DAILY PRN PRN Reason: Constipation Stop: 05/01/22 21:33 (1) Chest pain Chest pain type: unspecified Qualified Code(s): R07.9 - Chest pain, unspecified
[2022-04-02] MEDS ORDERED: REGADENOSON 0.4 MG/5 ML SYR IV ONE (12:52)
--- NOTE | 2022-04-02 15:26 | Myocardial Perfusion Study ---
Date of Service April 02, 2022 Myocardial Perfusion Study [facility] Myocardial Perfusion Study Report Patient performed a Lexiscan nuclear stress test according to standard protocol for 3 minutes and 32 seconds. Resting heart rate of 54 bpm which lele to a maximal heart rate of 101 bpm. Value represents 74% of the maximal, age- predicted heart rate. Resting blood pressure of 127/92 which elle to a maximal blood pressure of 127/92. Resting ECG: Normal sinus rhythm, nonspecific interventricular conduction block. Inferior T wave abnormality. Stress ECG: Sinus tachycardia. No significant ST changes. No evidence of Lexiscan induced ischemia. Nuclear imaging report: For the stress portion of the study, 31.3 mCi of technetium 99m Cardiolite IV was injected at 1330 p.m. on 04/02/2022. 30 minutes following the injection, imaging of the heart was performed in multiple projections. For the rest portion of the study 10.6 mCi of technetium 99m Cardiolite was injected IV at 11:55 AM. 1 hour following the injection, imaging of the heart was performed in the same projections. Raw data: There is significant hepatic and gallbladder uptake of isotopic tracer on rotating, raw data images. Right ventricle: Not well visualized Resting images: There is a small defect of mild intensity involving the base and mid inferior wall. The remaining left ventricular myocardial wall segments demonstrate normal perfusion. Defect likely secondary to soft tissue attenuation lesion artifact, ramp filter artifact, in the setting of hepatic isotopic tracer uptake. Stress images: There is a small defect of mild intensity involving left ventricular apex. The defect is reversible when compared to resting images and represent a small area of apical ischemia. The remaining left ventricular myocardial wall segments demonstrate normal perfusion. Gated SPECT imaging: Poor quality. Qualitative ejection fraction is 50%. Recommend alternative imaging for accurate assessment of left ventricular systolic function. Conclusion: Abnormal Lexiscan nuclear stress test suggesting a small area of apical ischemia.
--- NOTE | 2022-04-02 16:44 | Discharge Summary ---
Date of Service April 02, 2022 Admission HPI Per Admitting Provider This is an 86-year-old [place] male who has past medical history of myocardial infarction treated medically in [place] approximately 3 years ago and SVT who presents to ED with chest pain x3 days. His daughter who is a physician is at bedside. She is the cloth shader for the patient as she refuses translation services. Patient lives at home with his and ambulates with a cane. Previously had been in [place]. He is not established with any medical care [place]. Daughter prescribes him nebivolol and he takes a daily baby aspirin. She states approximately 3 years ago he was hospitalized in [place] and was diagnosed with a heart attack and treated with IV heparin. She states in [place] they do not do cardiac catheterizations. He has not had any heart stents or bypass procedures. She states he otherwise has no medical problems and takes no other medications. He also has not had any surgeries. Over the last 3 days he has been having intermittent chest pain that occurs with exertion. Symptoms are relieved with rest or taking 1 sublingual nitro. When the chest pain comes on he is typically in so exerting himself although he is unable to tell me what activity he is doing. When this comes on he gets sweaty and lightheaded. Chest pain is substernal and nonradiating. It is described as occasionally a pressure and occasionally an ache. He has not had similar pain in the past. He has not tried anything else to help relieve symptoms. Again he has not established with a deaf/hard of hearing specialist here. He is otherwise been in good state of health and denies any recent illness. Denies fever, chills, sweats, syncope, shortness of breath, palpitations, nausea, vomiting, abdominal pain, change in bowel or urinary habits. His appetite is otherwise been good. Principal Diagnosis Stable angina Discharge Exam Patient with no complaints currently. On exam, appears well. CV- regular rate and rhythm, no murmurs/rubs/gallops. Pulm- breathing comfortably on room air, no wheezing/rhonchi/rales. No lower extremity edema Discharge Data Allergies Allergy/AdvReac Type Severity Reaction Status Date / Time No Known Allergies Allergy Unverified 04/01/22 16:20 Consultations 04/01/22 15:20 ED Decision to Admit Stat 04/01/22 21:34 Consult Cardiology Routine Hospital Course (1) Anemia: (2) Stable angina: Plan Mr Jose Carney is a 86 year old man with history of coronary artery disease with distant IA (treated in [place] 3 years ago) and SVT presents to the ER 04/01 with several days of exertional chest pain. Patient was admitted for ACS evaluation. Troponin was negative x 4. Stress test however revealed a small area of reversible ischemia in left ventricular apex. He was seen by Cardiology and started on Imdur for his angina with plan for outpatient cardiac catheterization. He has a follow up appointment the following week. His medication changes at time of discharge are: 1. Aspirin 81mg daily (new) 2. Imdur 30mg daily (new) 3. Metoprolol 6.25mg BID (new) 4. Atorvastatin 40mg daily (new) Discontinued was Nebivolol Discharge instructions were provided to patient and his daughter. All questions were answered. Total Time Total Time Spent Total Time Spent (In Minutes): 35 Discharge Plan Discharge Items Patient Disposition: Home - Self-Care Reason For Visit: CHEST PAIN Discharge Diagnosis: Stable Angina Condition on Discharge: Good Activity: Resume your previous activity Lifting: No more than 5 pounds Weightbearing: Full weightbearing Non-emergency contact: Primary Care Provider and Custom Dressmaker Call non-emergency contact if: you have any medication questions and your symptoms worsen Follow-up/Referrals: Henrique Hernandez DO [Custom Dressmaker] - PCP,NO [Primary Care Provider] - Diet: Heart Healthy Addtl Attending Provider Instructions: You were admitted for chest pain. You had an abnormal stress test and will be started on Imdur, Metoprolol, aspirin and atorvastatin. You will follow up with [facility]iology to have a cardiac catheterization arranged Pending Studies at Discharge: No Stand-Alone Forms: My [facility] [employer], Smoking Cessation Medications and DC Order Prescriptions: New metoprolol tartrate 25 mg Tablet 6.25 mg PO BID 30 Days Qty: 15 0RF atorvastatin 40 mg Tablet 40 mg PO QAM Qty: 30 0RF isosorbide mononitrate 30 mg Tablet Extended Release 24 Hr 30 mg PO QAM Qty: 30 0RF nitroglycerin [Nitrostat] 0.4 mg Tablet, Sublingual 0.4 mg sublingual UD PRN (Reason: chest pain) Qty: 30 0RF Continued aspirin 81 mg Tablet,Delayed Release (Dr/Ec) 81 mg PO DAILY Discontinued nebivolol 5 mg Tablet 1.25 mg PO DAILY Discharge Orders: Discharge Order (Routine); Ordered 04/02/22 Ordered By: Lisa Domínguez Admission Data Admit Date/Time: 04/01/22 16:09 Attending Provider: Lisa Domínguez Admit Provider: Ej Mace Primary Care Provider: PCP,NO Other Providers: Ej Mace ; Henrique Hernandez
--- NOTE | 2022-04-02 18:11 | Electrocardiogram Report ---
Test Reason : Blood Pressure : / mmHG Vent. Rate : 058 BPM Atrial Rate : 058 BPM P-R Int : 184 ms QRS Dur : 154 ms QT Int : 458 ms P-R-T Axes : 017 -76 -37 degrees QTc Int : 449 ms Sinus bradycardia with Premature atrial complexes in a pattern of bigeminy Left axis deviation Non-specific intra-ventricular conduction block Possible old posterior [place] Abnormal ECG When compared with ECG of 01-APR-2022 14:01, (unconfirmed) Premature atrial complexes are now Present QRS axis Shifted left Confirmed by Lopez Fox ([id number]) on 04/02/2022 6:11:20 PM Referred By: REFERRED SELF Confirmed By:Kevon Fox
--- NOTE | 2022-04-02 18:13 | Electrocardiogram Report ---
Test Reason : Blood Pressure : / mmHG Vent. Rate : 064 BPM Atrial Rate : 064 BPM P-R Int : 168 ms QRS Dur : 158 ms QT Int : 430 ms P-R-T Axes : 004 032 -10 degrees QTc Int : 443 ms Normal sinus rhythm Non-specific intra-ventricular conduction block T wave abnormality, consider inferior ischemia Possible old posterior [place] Abnormal ECG When compared with ECG of 01-APR-2022 13:30, Premature ventricular complexes are no longer Present QRS axis Shifted right Confirmed by Lopez Fox ([id number]) on 04/02/2022 6:13:26 PM Referred By: REFERRED SELF Confirmed By:Kevon Fox
[2022-04-03] MEDS ORDERED: ISOSORBIDE MONO EXTENDED REL 30 MG TABCR PO SCH (09:00)
== END 2022-04-02 18:25 | disposition home or self-care (01) ==
LOC: 2E 13:18 → ED 13:18 → SUATTDRO 16:09 → 2E 21:10